=== PATIENT | female | born 1955 | race Caucasian/White ===

== ENCOUNTER → 2019-01-17 | Outpatient (CLI) | payer OTHER | LOC: CAT 11:55 | DX: Z13.6 Encounter for screening for cardiovascular disorders (principal); I25.10 Atherosclerotic heart disease of native coronary artery without angina pectoris; E78.00 Pure hypercholesterolemia, unspecified ==

== ENCOUNTER → 2020-04-29 | Outpatient (CLI) | payer OTHER ==
[~2020-04-29] VITALS: Ht 165.1 cm; Wt 60.3 kg
[~2020-04-29] MED LIST: EVEKEO PO; FLEXERIL PO; MIRALAX119 GM PO; NORCO 10-325 T1 EACH PO; SEROQUEL XR 30300 M1 PO; TYLENOL325 M1 PO; XTAMPZA ER13.5 MG PO; ZOLOFT 50 MG TA50 M1 PO
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
[2020-04-29 12:45] VITALS: BP 103/57
--- NOTE | 2020-04-29 13:07 | NUR ---
Pain Clinic Assessment: 1. History of Osteoarthritis: 'GENERALIZED' History of Rheumatoid Arthritis: NONE 2. Height: 5 ft. 5 in. 165.1 cm. Weight: 133.0 lb. oz. 60.328 kg. Patient's BMI: 22.1 3. Vital Signs: BP: 103/57 Pulse: 75 Resp: 16 Temp: 02 Sat: 98 ECG Mon: 4. Pain Intensity: 6-7; WORST IS 10 5. Fall Risk: Dizziness: N Needs help standing or walking: N Fallen in the last 3 months: N Fall risk comments: 6. Patient on Blood Thinner: None 7. History of Hypertension: N 8. Opioid Therapy greater than 6 weeks: Y Opiate Contract Signed: 9. Risk Assessment Tool Provided: 1-LOW RISK 10. Functional Assessment Tool: 34/ 11. Recreational Drug Use: Never Drug Type: Tobacco Use: Vaping Tobacco Type: E-Cigarettes Amount or Packs/day: NA How Many Years: 10 Alcohol Use: No Frequency: Quant:
== END ==
LOC: PAIN
PROVIDERS: ATTEND Anesthesiology Pain Medicine
DX: M79.7 Fibromyalgia (principal)

== ENCOUNTER → 2021-01-17 | Outpatient (CLI) | payer OTHER | LOC: MRI 01-15 11:59 | PROVIDERS: ATTEND Nurse Practitioner | DX: M50.11 Cervical disc disorder with radiculopathy, high cervical region (principal); M48.02 Spinal stenosis, cervical region; M47.22 Other spondylosis with radiculopathy, cervical region; M89.38 Hypertrophy of bone, other site; M25.78 Osteophyte, vertebrae; M53.82 Other specified dorsopathies, cervical region ==

== ENCOUNTER 2021-07-22 13:56 | Emergency (ER) | payer OTHER ==
[~2021-07-22] VITALS: Ht 165.1 cm; Wt 69.8 kg
[2021-07-22 14:55] LABS: ABSOLUTE NEUTROPHILS 3.3 thou/uL (1.4-8.2); BASOPHILS 0.5 % (0.0-2.0); EOSINOPHILS 0.7 % (0.0-3.0); HEMATOCRIT 43.3 % (37.0-47.0); HEMOGLOBIN 14.4 gm/dL (12.0-15.0); LYMPHOCYTES 51.2 % (24.0-44.0); MCH 31.5 pg (26.0-34.0); MCHC 33.2 g/dL (28.0-37.0); MCV 95.1 fL (80.0-100.0); MONOCYTES 7.2 % (1.0-8.0); PLATELET COUNT 362 thou/uL (150-400); POLYS 40.4 % (36.0-66.0); RBC 4.55 mil/uL (4.20-5.00); RDW 13.5 % (10.5-14.5); WBC 8.2 thou/uL (4.0-11.0)
[2021-07-22 15:13] LABS: ALBUMIN 4.5 g/dL (3.4-5.0); CALCIUM 9.6 mg/dL (8.5-10.1); CREATININE 0.9 mg/dL (0.6-1.0); MAGNESIUM 2.6 mg/dL (1.8-2.4); TOTAL BILIRUBIN 0.4 mg/dL (0.2-1.0); TOTAL PROTEIN 8.6 g/dL (6.4-8.2)
[2021-07-22 18:06] LABS: URINE BILIRUBIN NEGATIVE (Negative); URINE BLOOD NEGATIVE (Negative); URINE CLARITY CLEAR; URINE COLOR YELLOW; URINE GLUCOSE-RANDOM* NEGATIVE (Negative); URINE KETONES NEGATIVE (Negative); URINE LEUKOCYTES-REFLEX NEGATIVE (Negative); URINE NITRITE-REFLEX NEGATIVE (Negative); URINE PROTEIN (DIPSTICK) NEGATIVE (Negative); URINE UROBILINOGEN 0.2 E.U./dl (0.2-1.0)
[2021-07-22 18:33] VITALS: BP 132/75
--- NOTE | 2021-07-23 07:18 | EKG ---
[place] [address] [email or web address] [address] ELECTROCARDIOGRAM REPORT Name: AGUEROSHOBHA Room #: [facility] [id number] Admission: 07/22/21 Attend Phys: Discharge: 07/22/21 Date of : 55 Report #: [id number] [facility] ED Test Date: 2021-07-22 Test Time: 14:11:25 Pat Name: SHOBHA AGUERO Department: Room: Gender: F Wheat Buyer: Chelsy GRIMES : 1955 Requested By: Chasidy Hope Order Number: [id number] MD: Vitaliy Tena Measurements Intervals Odd Rate: 65 P: 47 IA: 137 QRS: 77 QRSD: 109 T: 51 QT: 410 QTc: 427 Interpretive Statements Sinus rhythm RSR' in V1 or V2, right VCD or RVH No previous ECG available for comparison Electronically Signed On 07-23-2021 7:18:48 TABLEMAN by Vitaliy Tena [email or web address] <ELECTRONICALLY SIGNED> By: Vitaliy Tena MD, [facility] 07/23/21 0718 1411 1411 Vitaliy Tena MD, FACC /EPI
== END 2021-07-22 18:48 | disposition home or self-care (01) ==
LOC: ER 13:56
PROVIDERS: Emergency Medicine
DX: R53.1 Weakness (principal); M79.7 Fibromyalgia; Z98.890 Other specified postprocedural states; Z79.1 Long term (current) use of non-steroidal anti-inflammatories (NSAID); Z79.891 Long term (current) use of opiate analgesic; Z79.899 Other long term (current) drug therapy; Z88.8 Allergy status to other drugs, medicaments and biological substances